=== PATIENT | female | born 1940 | race Two or more races ===

== ENCOUNTER 2017-08-06 08:58 | Inpatient (IN) | payer OTHER, MEDICARE ==
[~2017-08-06] VITALS: Ht 147.3 cm; Wt 55.3 kg
[~2017-08-06 08:58] MED LIST: AMLODIPINE BES2.5 M1 PO; ASPIR 8181 MG PO; AZU500 PO; BG MC; FOL1 PO; LEVOTHYROXINE0.05 M2 PO; LIPITOR40 MG PO; LOPRESSOR50 MG PO; METFORMIN HCL500 MG PO; NITROSTAT0.4 MG SL; PLA75 PO; RANITIDINE150 M1 PO; ZOCOR10 MG PO
[2017-08-06 10:30] LABS: BASOPHIL % 0.5 % (0-2); PLATELET COUNT 271 x10^3mcL (130-400)
[2017-08-06 10:57] LABS: ALBUMIN 3.6 g/dL (3.4-5.0); ALKALINE PHOSPHATASE 96 U/L (46-116); ALT/SGPT 29 U/L (14-59); AST/SGOT 37 U/L (15-37); BILIRUBIN TOTAL 0.3 mg/dL (0.20-1.00); CALCIUM 9.1 mg/dL (8.5-10.1); CARBON DIOXIDE 25.3 mmol/L (21-32); CHLORIDE SERUM 104 mmol/L (98-107); CREATININE SERUM 0.8 mg/dL (0.6-1.0); GLUCOSE SERUM 117 mg/dL (74-106); POTASSIUM SERUM 4.3 mmol/L (3.5-5.1); SODIUM SERUM 140 mmol/L (136-145); TOTAL PROTEIN, SERUM 7.9 g/dL (6.4-8.2)
[2017-08-06 11:06] LABS: AMYLASE 122 U/L (25-115); LIPASE 429 IU/L (73-393)
[2017-08-06 12:21] LABS: UA SPECIFIC GRAVITY <=1.005 (1.005-1.035); microscopic required? YES; urine erythrocyte 1+ (NEGATIVE)
[2017-08-06 12:58] VITALS: BP 116/62
[2017-08-06 13:00] LABS: MAGNESIUM 2.1 mg/dL (1.8-2.4); PHOSPHOROUS 3.6 mg/dL (2.5-4.9)
[2017-08-06 13:01] LABS: CHOLESTEROL/HDL RATIO 2.7
[2017-08-06 13:07] LABS: T3 TOTAL 1.24 ng/mL
[2017-08-06 13:11] LABS: FREE T4 1.21 ng/dL (0.76-1.46); FREE THYROXINE INDEX 3.8 ug/dL (1.4-4.5)
[2017-08-06 13:37] VITALS: BP 127/92
[2017-08-06] MEDS ORDERED: AMLODIPINE BES2.5 M1 PO (18:05)
[2017-08-06] MEDS ORDERED: SULFASALAZINE500 M1 PO (18:06)
[2017-08-06] MEDS ORDERED: ASPIR 8181 MG PO (18:08)
[2017-08-06 18:35] VITALS: BP 131/80
[2017-08-06 21:26] VITALS: BP 130/76
[2017-08-07 05:27] VITALS: BP 116/64
[2017-08-07 05:56] LABS: BASOPHIL % 0.4 % (0-2); PLATELET COUNT 238 x10^3mcL (130-400)
[2017-08-07 06:18] LABS: RED CELL DISTRIBUTION WIDTH 15.8 % (11.5-14.5)
[2017-08-07 06:29] LABS: CALCIUM 8.3 mg/dL (8.5-10.1); CARBON DIOXIDE 24.9 mmol/L (21-32); CHLORIDE SERUM 106 mmol/L (98-107); CREATININE SERUM 0.7 mg/dL (0.6-1.0); GLUCOSE SERUM 72 mg/dL (74-106); MAGNESIUM 1.6 mg/dL (1.8-2.4); PHOSPHOROUS 3.5 mg/dL (2.5-4.9); POTASSIUM SERUM 3.4 mmol/L (3.5-5.1); SODIUM SERUM 141 mmol/L (136-145)
[2017-08-07 09:38] VITALS: BP 124/67
[2017-08-07 13:04] VITALS: BP 115/67
[2017-08-07 18:30] VITALS: BP 117/71
[2017-08-07 21:58] VITALS: BP 144/111
[2017-08-07 22:15] VITALS: BP 94/52
[2017-08-08 06:20] VITALS: BP 110/76
[2017-08-08 07:02] LABS: CALCIUM 8.7 mg/dL (8.5-10.1); CARBON DIOXIDE 24.7 mmol/L (21-32); CHLORIDE SERUM 106 mmol/L (98-107); CREATININE SERUM 0.8 mg/dL (0.6-1.0); GLUCOSE SERUM 102 mg/dL (74-106); MAGNESIUM 2.3 mg/dL (1.8-2.4); PHOSPHOROUS 4.1 mg/dL (2.5-4.9); POTASSIUM SERUM 3.9 mmol/L (3.5-5.1); SODIUM SERUM 140 mmol/L (136-145)
[2017-08-08 07:23] LABS: BASOPHIL % 0.6 % (0-2); PLATELET COUNT 246 x10^3mcL (130-400)
[2017-08-08 07:27] LABS: RED CELL DISTRIBUTION WIDTH 16.2 % (11.5-14.5)
[2017-08-08 09:44] VITALS: BP 116/65
[2017-08-08] MEDS ORDERED: LEVOTHYROXINE0.05 M2 PO (14:31)
[2017-08-08] MEDS ORDERED: LOP50 PO (14:32)
[2017-08-08] MEDS ORDERED: MEDDP PO (14:35)
[2017-08-08 14:54] VITALS: BP 116/65
[2017-08-08] MEDS ORDERED: PLA75 PO (15:07)
[2017-08-08] MEDS ORDERED: AMLODIPINE BES2.5 M1 PO (15:08)
[2017-08-08] MEDS ORDERED: LIPITOR40 MG PO (15:09)
== END 2017-08-08 16:20 | disposition home or self-care (01) | DRG 245 ==
LOC: ED 08:58 → MU 11:46 → DU 11:46 → MU 08-07 11:29
PROVIDERS: Emergency Medicine; ADMIT Family Medicine Sports Medicine
DX: K51.90 Ulcerative colitis, unspecified, without complications (principal); E11.51 Type 2 diabetes mellitus with diabetic peripheral angiopathy without gangrene; E11.65 Type 2 diabetes mellitus with hyperglycemia; K86.1 Other chronic pancreatitis; E83.42 Hypomagnesemia; N28.1 Cyst of kidney, acquired; K57.32 Diverticulitis of large intestine without perforation or abscess without bleeding; I25.10 Atherosclerotic heart disease of native coronary artery without angina pectoris; E78.5 Hyperlipidemia, unspecified; E03.9 Hypothyroidism, unspecified; I10 Essential (primary) hypertension; E83.51 Hypocalcemia; E87.6 Hypokalemia; D64.9 Anemia, unspecified; I25.2 Old myocardial infarction; Z95.5 Presence of coronary angioplasty implant and graft; Z79.02 Long term (current) use of antithrombotics/antiplatelets; Z79.82 Long term (current) use of aspirin; Z68.25 Body mass index [BMI] 25.0-25.9, adult
CPT/HCPCS: 82962; 83880; 84439; 87046; 87046-59; 90658; J2270; J2543; J3475; J7030; Q0092; Q9966; Q9967

== ENCOUNTER 2018-05-24 07:22 | Inpatient (IN) | payer OTHER, MEDICARE ==
[~2018-05-24] VITALS: Ht 149.9 cm; Wt 54.9 kg
[~2018-05-24 07:22] MED LIST changes: +LOP50 PO; +MEDDP PO; +SULFASALAZINE500 M1 PO
[2018-05-24 08:43] LABS: PLATELET COUNT 184 x10^3mcL (130-400)
[2018-05-24 08:46] LABS: RED CELL DISTRIBUTION WIDTH 15.4 % (11.5-14.5)
[2018-05-24 09:47] LABS: CALCIUM 9.2 mg/dL (8.5-10.1); CARBON DIOXIDE 27.4 mmol/L (21-32); CHLORIDE SERUM 105 mmol/L (98-107); CREATININE SERUM 0.9 mg/dL (0.6-1.0); GLUCOSE SERUM 104 mg/dL (74-106); POTASSIUM SERUM 3.8 mmol/L (3.5-5.1); SODIUM SERUM 141 mmol/L (136-145)
[2018-05-24 10:07] LABS: ALBUMIN 3.4 g/dL (3.4-5.0); ALKALINE PHOSPHATASE 70 U/L (46-116); ALT/SGPT 40 U/L (14-59); AST/SGOT 26 U/L (15-37); BILIRUBIN TOTAL 0.89 mg/dL (0.20-1.00); TOTAL PROTEIN, SERUM 6.6 g/dL (6.4-8.2)
[2018-05-24 10:16] LABS: AMYLASE 713 U/L (25-115)
[2018-05-24 10:22] LABS: BAND NEUTROPHIL 10 % (0-10); BASOPHIL 0 % (0-2); MONOCYTE 5 % (0-7); PLATELET MORPHOLOGY PLATELETS NORMAL; SEGMENTED NEUTROPHILS 78 % (37-75)
[2018-05-24 10:33] LABS: LIPASE 2592 IU/L (73-393)
[2018-05-24 10:40] LABS: UA SPECIFIC GRAVITY >=1.030 (1.005-1.035); microscopic required? YES; urine erythrocyte TRACE (NEGATIVE)
[2018-05-24 12:35] LABS: AMPHETAMINE QUAL UR NONE DETECTED (See below)
[2018-05-24 12:36] LABS: MAGNESIUM 1.8 mg/dL (1.8-2.4); PHOSPHOROUS 5.1 mg/dL (2.5-4.9)
[2018-05-24 13:18] VITALS: BP 124/77
[2018-05-24 17:30] VITALS: BP 114/68
[2018-05-24 20:41] VITALS: BP 116/67
[2018-05-25] VITALS (7 sets, daily range): BP systolic 109–132; BP diastolic 62–72; Ht 149.9 cm; Wt 54.9 kg
[2018-05-25 06:29] LABS: BASOPHIL % 0.1 % (0-2); PLATELET COUNT 145 x10^3mcL (130-400)
[2018-05-25 06:47] LABS: RED CELL DISTRIBUTION WIDTH 14.9 % (11.5-14.5)
[2018-05-25 07:06] LABS: CALCIUM 7.5 mg/dL (8.5-10.1); CARBON DIOXIDE 26.6 mmol/L (21-32); CHLORIDE SERUM 107 mmol/L (98-107); CREATININE SERUM 0.9 mg/dL (0.6-1.0); LIPASE 442 IU/L (73-393); POTASSIUM SERUM 3.4 mmol/L (3.5-5.1); SODIUM SERUM 142 mmol/L (136-145)
[2018-05-25 07:25] LABS: GLUCOSE SERUM 56 mg/dL (74-106)
[2018-05-26 06:09] VITALS: BP 145/81
[2018-05-26 07:44] LABS: CALCIUM 7.1 mg/dL (8.5-10.1); CARBON DIOXIDE 25.3 mmol/L (21-32); CHLORIDE SERUM 105 mmol/L (98-107); CREATININE SERUM 0.8 mg/dL (0.6-1.0); GLUCOSE SERUM 75 mg/dL (74-106); MAGNESIUM 1.7 mg/dL (1.8-2.4); PHOSPHOROUS 2.3 mg/dL (2.5-4.9); POTASSIUM SERUM 3.8 mmol/L (3.5-5.1); SODIUM SERUM 137 mmol/L (136-145)
[2018-05-26 08:15] LABS: BASOPHIL % 0.3 % (0-2)
[2018-05-26 08:18] LABS: PLATELET COUNT 126 x10^3mcL (130-400); RED CELL DISTRIBUTION WIDTH 14.9 % (11.5-14.5)
[2018-05-26 09:06] VITALS: BP 114/75
[2018-05-26 13:26] VITALS: BP 146/82
[2018-05-26 16:46] VITALS: BP 146/82
[2018-05-26 17:33] VITALS: BP 142/79
== END 2018-05-26 19:00 | disposition home or self-care (01) | DRG 720 ==
LOC: ED 07:22 → DU 11:24 → MU 11:24 → DU 12:10 → MU 12:20 → DU 17:21
PROVIDERS: Emergency Medicine; Internal Medicine
DX: A41.9 Sepsis, unspecified organism (principal); N17.0 Acute kidney failure with tubular necrosis; E87.2 Acidosis; K85.90 Acute pancreatitis without necrosis or infection, unspecified; E83.42 Hypomagnesemia; E83.39 Other disorders of phosphorus metabolism; E86.0 Dehydration; I10 Essential (primary) hypertension; I25.10 Atherosclerotic heart disease of native coronary artery without angina pectoris; E83.51 Hypocalcemia; I25.2 Old myocardial infarction; Z68.26 Body mass index [BMI] 26.0-26.9, adult; Z95.5 Presence of coronary angioplasty implant and graft; N39.0 Urinary tract infection, site not specified; R73.03 Prediabetes
CPT/HCPCS: 82962; 83880; C9113; J1650; J1885; J2405; J2543; J3490; J7030; Q0092

== ENCOUNTER 2018-11-16 21:08 | Inpatient (IN) | payer OTHER, MEDICARE ==
[~2018-11-16] VITALS: Ht 149.9 cm; Wt 57.6 kg
[2018-11-16 21:15] VITALS: Ht 149.9 cm; Wt 57.6 kg
[2018-11-16 22:16] LABS: BASOPHIL % 0.4 % (0-2); PLATELET COUNT 166 x10^3mcL (130-400); RED CELL DISTRIBUTION WIDTH 13.9 % (11.5-14.5)
[2018-11-16 22:28] LABS: CALCIUM 8.6 mg/dL (8.5-10.1); CARBON DIOXIDE 25.2 mmol/L (21-32); CHLORIDE SERUM 101 mmol/L (98-107); CREATININE SERUM 0.9 mg/dL (0.6-1.0); GLUCOSE SERUM 131 mg/dL (74-106); POTASSIUM SERUM 3.2 mmol/L (3.5-5.1); SODIUM SERUM 134 mmol/L (136-145)
[2018-11-16 22:33] LABS: ALBUMIN 3.4 g/dL (3.4-5.0); ALKALINE PHOSPHATASE 93 U/L (46-116); ALT/SGPT 18 U/L (14-59); AST/SGOT 55 U/L (15-37); BILIRUBIN TOTAL 0.4 mg/dL (0.20-1.00); LIPASE 156 IU/L (73-393); TOTAL PROTEIN, SERUM 7.3 g/dL (6.4-8.2)
--- NOTE | 2018-11-16 23:21 | NUR ---
PT MEDICATED WITH 650MG OF TYLENOL FOR COMPLAINT OF HEADACHE VO/RBO DR. RAINES.
--- NOTE | 2018-11-17 00:55 | NUR ---
PT RESTING AT BEDSIDE IN NAD. BREATHING E/U, BILATERAL CHEST RISE. BED AT LOWEST LEVEL. LIGHTS DIMMED TO PROMOTE PATIENT COMFORT.
--- NOTE | 2018-11-17 01:05 | NUR ---
NORA RAINES FOR RECTAL EXAM.
[2018-11-17] MEDS ORDERED: COLAZAL750 MG PO (01:50)
[2018-11-17] MEDS ORDERED: NATURAL IRON65 MG PO (01:51)
[2018-11-17] MEDS ORDERED: FLUOCINOLON118.28 M1 (01:51)
[2018-11-17 02:07] LABS: MAGNESIUM 1.9 mg/dL (1.8-2.4); PHOSPHOROUS 2.9 mg/dL (2.5-4.9)
[2018-11-17 02:08] LABS: CHOLESTEROL/HDL RATIO 3.1
[2018-11-17 02:15] VITALS: BP 114/71
--- NOTE | 2018-11-17 02:37 | NUR ---
RECIEVED [facility] ER DEPT VIA WHEELCHAIR ACCOMPANIED BY ER STAFFS WITH CHIEF COMPLAINTS OF ABDOMINAL PAIN DUE TO ULCERATIVE COLITIS/LOWER GI BLEED PER DX. PLACED COMFORTABLY IN BED. PT ALERT AND ORIENTED. ABLE TO MAKE NEEDS KNOWN,VITAL SIGNS TAKEN AND RECORDED. ON ROOM AIR SATURATING AT 84%. NO SOB NOTED. DENIES ANY PAIN/DISCOMFORT AT THIS TIME, PT WAS GIVEN MORPHINE IV AT ER. DR CAUSEY EXAMINED PT, STARTED ON IVF NS AT 70CC/HR ORDERED VIA PERIPHERAL LINE AT THE [facility] . PLACED CALL LIGHT WITHIN REACH, INSTRUCTED TO CALL FOR ANY ASSISTANCE NEEDED AND VERBALIZED UNDERSTANDING.
[2018-11-17] MEDS ORDERED: GOOD NEIGHBOR P20 M2 PO (03:22)
--- NOTE | 2018-11-17 03:32 | NUR ---
POTASSIUM LEVEL =3.2, K-DUR 40MEQ PO GIVEN ORDERED, TOLERATED WELL. NO NAUSEA/VOMTING NOTED.
[2018-11-17 04:01] LABS: UA SPECIFIC GRAVITY <=1.005 (1.005-1.035); microscopic required? YES; urine erythrocyte TRACE (NEGATIVE)
[2018-11-17 04:10] LABS: AMPHETAMINE QUAL UR NONE DETECTED (See below)
[2018-11-17 05:26] VITALS: BP 107/56
--- NOTE | 2018-11-17 06:26 | NUR ---
DENIES ANY PAIN/DISCOMFORT AT THIS TIME. ALL NEEDS ATTENDED.
[2018-11-17 06:35] LABS: BASOPHIL % 0.5 % (0-2); RED CELL DISTRIBUTION WIDTH 13.7 % (11.5-14.5)
[2018-11-17 06:42] LABS: PLATELET COUNT 128 x10^3mcL (130-400)
--- NOTE | 2018-11-17 07:10 | NUR ---
PT AWAKE, ALERT, COOPERATIVE OF CARE. DENIES PAIN AT MOMENT. ABLE TO VERBALIZE NEEDS. EFFORTLESS BREATHING ON ROOM AIR. IV PATENT TO LAC#22. BED IN LOWEST POSITION, CALL LIGHT WITHIN REACH. WILL CONTINUE TO MONITOR.
[2018-11-17 07:34] LABS: CHLORIDE SERUM 107 mmol/L (98-107); CREATININE SERUM 0.7 mg/dL (0.6-1.0); GLUCOSE SERUM 92 mg/dL (74-106); MAGNESIUM 1.7 mg/dL (1.8-2.4); PHOSPHOROUS 3.6 mg/dL (2.5-4.9); POTASSIUM SERUM 3.3 mmol/L (3.5-5.1); SODIUM SERUM 138 mmol/L (136-145)
[2018-11-17 09:28] VITALS: BP 128/66
--- NOTE | 2018-11-17 12:10 | NUR ---
PT IN LOW FOWLERS, DENIES ANY ABDOMINAL PAIN AT MOMENT. EFFORTLESS BREATHING ON ROOM AIR. IV PATENT AND INFUSING WELL TO LAC#22. BED IN LOWEST POSITION, CALL LIGHT WITHIN REACH.
[2018-11-17 12:11] VITALS: BP 111/60
[2018-11-17 17:00] LABS: BASOPHIL % 0.4 % (0-2); RED CELL DISTRIBUTION WIDTH 13.9 % (11.5-14.5)
[2018-11-17 17:01] LABS: PLATELET COUNT 123 x10^3mcL (130-400)
--- NOTE | 2018-11-17 18:11 | NUR ---
PT SLEEPING AT MOMENT. EFFORTLESS BREATHING ON ROOM AIR. NO S/S OF PAIN. IV PATENT AND INFUSING WELL TO LAC#22 BED IN LOWEST POSITION, CALL LIGHT WITHIN REACH.
--- NOTE | 2018-11-17 19:31 | NUR ---
RECEIVED AWAKE IN BED WATCHING TV , APPARENTLY COMFORTABLE. DENIES ANY PAIN/DISCOMFORT. RESPIRATIONE FER AND UNLABORED. ON TELE #32 WITH SR AT 78-86 IV SITE AT THE RAC INTACT AND PATENT WITH IVF NA ST 70ML/HR TOLERATING WELL. NO REDNESS/SWELLING NOTED AT THE IV SITE. WILL CONTINUE TO MONITOR.
--- NOTE | 2018-11-17 21:00 | NUR ---
DUE MEDICATIONS GIVEN AND WELL TOLERATED. NO S/S OF ASPIRATION NOTED.
[2018-11-17 21:12] VITALS: BP 113/71
--- NOTE | 2018-11-18 00:01 | NUR ---
EYES CLSOED, NO FACIAL GRIAMCING NOTED. NO S/S OF PAIN/DISCOMFORT. CALL LIGHT WITHIN REACH. BED IN LOWEST POSITION FOR SAFETY.
[2018-11-18 05:20] VITALS: BP 110/65
--- NOTE | 2018-11-18 05:31 | NUR ---
STOOL SPECIMEN COLLECTED FOR STOOL C-DIFF/STOOL ON AND SENT TO LAB. GOOD PERICARE RENDERED. KEPT CLEAN AND DRY. BLOOD SUGAR CHECK 86,G/DL. NIO INSULIN COVERAGE PER SLIDING SCALE. ALL NEEDS ATTENDED.
[2018-11-18 05:41] LABS: CARBON DIOXIDE 23.7 mmol/L (21-32); CHLORIDE SERUM 104 mmol/L (98-107); CREATININE SERUM 0.8 mg/dL (0.6-1.0); GLUCOSE SERUM 80 mg/dL (74-106); MAGNESIUM 1.8 mg/dL (1.8-2.4); PHOSPHOROUS 2.4 mg/dL (2.5-4.9); POTASSIUM SERUM 4.2 mmol/L (3.5-5.1); SODIUM SERUM 137 mmol/L (136-145)
[2018-11-18 05:47] LABS: BASOPHIL % 0.4 % (0-2); RED CELL DISTRIBUTION WIDTH 13.7 % (11.5-14.5)
[2018-11-18 07:09] LABS: PLATELET COUNT 118 x10^3mcL (130-400)
--- NOTE | 2018-11-18 07:40 | NUR ---
RECEIVED PT RESTING IN BED. NO ACUTE DISTRESS. AAOX4. RESP EVEN AND UNLABORED ON RA. ABD SOFT, ROUND, BOWEL SOUNDS ACTIVE. C/O NAUSEA, DOES NOT WANT MEDICATION. C/O LOWER ABD PAIN BUT TOLERABLE. PT REPORTS PASSING A LOT OF GAS. VOIDING FREELY. IV TO LAC, NO REDNESS OR SWELLING. BED IN LOW POSITION, CALL LIGHT WITHIN REACH. WILL CONTINUE TO MONITOR.
[2018-11-18 07:52] VITALS: BP 128/64
--- NOTE | 2018-11-18 10:30 | NUR ---
[employer] SAF[employer] EQUIPMENT TECHNICIAN AWARE OF STOOL OB RESULTS AND PHOS 2.4. NO NEW ORDERS AT THIS TIME. WILL CONTINUE TO MONITOR.
[2018-11-18 11:53] VITALS: BP 110/57
--- NOTE | 2018-11-18 13:55 | NUR ---
PT RESTING IN BED. NO ACUTE DISTRESS. C/O INTERMITTENT LOWER ABD PAIN AND NAUSEA, DOES NOT WANT MEDICATION AT THIS TIME. IVF INFUSING, NO REDNESS OR SWELLING NOTED. BED IN LOW POSITION, CALL LIGHT WITHIN REACH. WILL CONTINUE TO MONITOR.
[2018-11-18 16:18] VITALS: BP 113/56
--- NOTE | 2018-11-18 16:49 | NUR ---
PT RESTING IN BED. NO ACUTE DISTRESS. REPORTS HAVING SMALL DARK BLOODY BM. C/O MILD NAUSEA AND LOWER ABD PAIN BUT TOLERABLE. IVF INFUSING, NO REDNESS OR SWELLING. CALL LIGHT WITHIN REACH. WILL CONTINUE TO MONITOR.
--- NOTE | 2018-11-18 18:09 | NUR ---
PT SITTING UP IN BED EATING DINNER. NO ACUTE DISTRESS. RESP EVEN AND UNLABORED ON RA. IVF INFUSING, NO REDNESS OR SWELLING TO IV SITE. C/O MILD NAUSEA AND ABD PAIN, NO REDNESS OR SWELLING. BED IN LOW PSOITION, CALL LIGHT WITHIN REACH. WILL ENDORSE TO ONCOMING SHIFT.
--- NOTE | 2018-11-18 19:34 | NUR ---
RECEIVED PT FROM PREVIOUS SHIFT. PT A/OX4. DENIES PAIN. DENIES SOB ON RA. IV PATENT AND INFUSING NS AT 70ML/HR WITH NO S/S OF INFILTRATION. CALL LIGHT WITHIN REACH, BED IN LOW POSITION. WILL CONTINUE TO MONITOR.
[2018-11-18 20:52] VITALS: BP 124/714
--- NOTE | 2018-11-19 01:31 | NUR ---
PT RESTING IN NO ACUTE DISTRESS. RR EVEN AND UNLABORED. CALL LIGHT WITHIN REACH, BED IN LOW POSITION. WILL CONTINUE TO MONITOR.
[2018-11-19 05:32] VITALS: BP 106/66
--- NOTE | 2018-11-19 07:20 | NUR ---
RECEIVED PT IN NO ACUTE DISTRESS. AAOX4. RESP EVEN AND UNLABORED ON RA. DENIES NAUSEA OR ABD PAIN. IVF INFUSING AT 70 ML/HR, NO REDNESS OR SWELLING TO IV SITE. AMBULATORY. BED IN LOW POSITION, CALL LIGHT WITHIN REACH. WILL CONTINUE TO MONITOR.
[2018-11-19 07:48] VITALS: BP 102/60
[2018-11-19 12:25] VITALS: BP 101/59
--- NOTE | 2018-11-19 13:07 | NUR ---
11/19/18 AT 1220 BLOOD GLUCOSE CHECKED 53. REPEATED 60. PT AWAKE, ALERT AND ORIENTED. 2 APPLEJUICE GIVEN PER PT REQUEST. REPEATED BLOOD SUGAR AT 1243 WAS 104. PT EATING LUNCH. CALL LIGHT WITHIN REACH. WILL CONTINUE TO MONITOR.
[2018-11-19 16:50] VITALS: BP 112/63
--- NOTE | 2018-11-19 18:32 | NUR ---
PT SITTING UP IN BED TALKING ON THE PHONE. NO ACUTE DISTRESS NOTED. NO COMPLAINTS OF N, V OR ABD PAIN. IV SITE PATENT WITH NO SIGNS OF REDNESS OR SWELLING. BED IN LOW POSITION. WILL ENDORSE TO ONCOMING SHIFT. CALL LIGHT WITHIN REACH.
--- NOTE | 2018-11-19 19:55 | NUR ---
PATIENT'S PLAN OF CARE WAS DISCUSSED AND REVIEWED WITH RADIO ENGINEERING TEACHER: ELLEN MICHELLE
--- NOTE | 2018-11-19 20:07 | NUR ---
RECEIVED PT IN BED AAOX4 , PT DENY ABD PAIN AT THE MOMENT , LUNG SOUNDS CTA , ABD SOFT BS ACTIVE X4, ON TELE NUMBER 31 THAT SHOWS NSR HR 77, PIV TO LAC INTACT INFUSING NS AT 70ML/HR , CALL LIGHT WITHIN PT'S REACH , WILL CON;T TO MONITOR AND ASSIST PT WITH CARE .
[2018-11-19 20:15] VITALS: BP 115/69
--- NOTE | 2018-11-20 04:45 | NUR ---
PT'S IN BED AWAKE C/O RECTAL PAIN AFTER BM , DR CAUSEY AWARE. PIV INTACT INFUSING WELL, TLE NSR .
[2018-11-20 06:00] VITALS: BP 120/71
--- NOTE | 2018-11-20 06:15 | NUR ---
PT'S IN BED AWAKE NO ACUTE DISTRESS NOTED, PIV INTACT INFUSING WELL , TELE NSR.
--- NOTE | 2018-11-20 06:23 | NUR ---
I HAVE REVIEWED THE DATA COLLECTION BY LAINE (NAME): ELLEN MICHELLE ENTERED ON (DATE/TIME): 11/20/18 4029 I CONCUR WITH THE DATA AND ANY EXCEPTIONS OR COMMENTS ARE LISTED BELOW:
--- NOTE | 2018-11-20 06:44 | NUR ---
PT WANT IV HL'D ,PIV IS ON LAC PT WON'T KEEP LEFT ARM STRAIGHT, REFUSED TO HAVE NEW IV SITE , PAGED DR CAUSEY , AT THE MOMENT IV IS HL'D . WILL ENDORSE TO AM NURSE TO F/U WITH .
--- NOTE | 2018-11-20 07:08 | NUR ---
RECEIVED REPORT FROM ELLEN JANG. PATIENT RESTING IN BED. IV TO LAC IS PATENT AND INTACT. NO REDNESS OR PAIN. TELE #[address] PT DENIES CHEST PAIN. PT ON ROOOM AIR. NO C/O SOB AND NO DISTRESS NOTED. PT C/O HEADACHE AND RECTAL PAIN SHE BELIEVES IS FROM WIPING. WILL MONITOR AND MEDICATE. ALL QUESTIONS AND CONCERNS ADDRESSED.
[2018-11-20 08:23] VITALS: BP 120/68
--- NOTE | 2018-11-20 09:29 | NUR ---
IN TO ADMINISTER MEDICATION (SEE EMAR). PT RESTING COMFORTABLY IN BED. ALL NEEDS MET.
[2018-11-20 09:33] LABS: BASOPHIL % 0.2 % (0-2); RED CELL DISTRIBUTION WIDTH 13.6 % (11.5-14.5)
[2018-11-20 09:55] LABS: PLATELET COUNT 98 x10^3mcL (130-400)
[2018-11-20 11:43] VITALS: BP 102/60
--- NOTE | 2018-11-20 11:56 | NUR ---
IN TO CHECK BLOOD GLUCOSE. GLUCOSE IS 148 NO ACTION REQUIRED.
[2018-11-20] MEDS ORDERED: ROBDML (12:35)
--- NOTE | 2018-11-20 13:05 | NUR ---
PT NAUSEATED AND VOMITING. IN TO ADMINISTER ZOFRAN (SEE EMAR). PT RESTING IN BED. ALL NEEDS MET.
--- NOTE | 2018-11-20 13:47 | NUR ---
SPOKE WITH SONALI TO NOTIFY THAT AFTER RECEIVING DISCHARGE ORDERS PT BECAME NAUSEATED AND VOMITTED. SONALI ORDERED TO HOLD DISCHARGE AND HAVE GI CONSULT WITH PATIENT AGAIN.
--- NOTE | 2018-11-20 14:40 | NUR ---
*Recommend CCHO 2gm Na diet. Please see Nutritional Assessment for details.
--- NOTE | 2018-11-20 14:40 | NUR ---
Initial Nutrition Assessment- Dx: UC, Lower GI bleed PMHx: Ulcerative colitis (2014), HTN, [place] s/p PCI, hypercholesterolemia PSHx: hysterectomy Labs: (11/18) BG 80 WNL, Ca 8 L, P 2.4 L, AST 55 H, HgA1c 6.7 H, Meds: colace, D50%W, humulin, protonix IV, synthroid, zofran Diet: Cardiac low CHOL, Low fat 2gm Na diet PO Intake: 100% of breakfast (11/20), previously on clear liquid diet Ht: 4' Wt: 127 lb, 58 kg BMI: 25.7 kg/m2 IBW: 95 lb, 43 kg %IBW: 134 UBW: unknown Age: 78 yrs old Food Allergies: unknown Skin: is intact. Chente: 22 Edema: no edema noted. GI: abd is soft w/ active bowel sounds. Last BM 11/19/18 Per H&P, pt presents to the ED w/ worsening abd pain for 10 days associated w/ dark bloody stool. Pt seen having emesis at time of RD visit. RD interview was not conducted d/t pt's condition. Problem with: N/V: yes D/C: no Problems with: Chewing: none Swallowing: none Current appetite: Good Recent wt change: none %wt change: n/a Vitamin/Supplement use: none Special diet at home: unknown Physical activity: unknown Education: not appropriate at this time. Estimated Nutritional Needs Based on actual body weight 58 kg Energy: 0660-2376 kcal/d (25-30 kcal/kg-maintenance) Protein: 58-70 g/d (1-1.2 g/kg- Geriatric maintenance and preservation of lean body mass) Fluid: 2124-3016 ml/d (1 ml/kcal-fluid balance) or per doctor Nutrition Diagnosis Complicated GI function related to UC as evidenced by abd pain, GI bleed and dark stools. Intervention *Recommend CCHO 2gm Na diet. Monitor/Evaluate Goal: PO intake at least 75% of estimated needs Monitor: PO intake, Labs, GI function F/U in 7 days as low risk 11/27
[2018-11-20 16:19] VITALS: BP 99/59
--- NOTE | 2018-11-20 16:59 | NUR ---
IN TO CHECK BLOOD GLUCOSE. GLUCOSE IS 143 NO ACTION REQUIRED.
--- NOTE | 2018-11-20 18:59 | NUR ---
PT RESTING COMFORTABLY IN BED. IV TO LAC IS PATENT AND INFUSING NS @ 70 ML/HR. NO REDNESS OR APIN. TELE # [address] PT DENIES CHEST PAIN. PT ON ROOM AIR. NO C/O SOB AND NO DISTRESS NOTED. WILL ENDORSE ALL CARE TO ONCOMING NURSE.
--- NOTE | 2018-11-20 19:30 | NUR ---
RECIEVED PATIENT AT START OF SHIFT ALERT, VICENTA SPEAKING ONLY, FOLLOWS COMMANDS. DENIES PAIN AT THIS TIME, NO SOB NOTED ON RA. ABDOMEN SOFT AND ROUND, TENDER TO PALPATION IN LLQ. BOWEL SOUNDS ACTIVE. IV INTACT INFUSING FLUIDS WITHOUT REDNESS OR EDEMA. PATIENT AMBULATORY, WALKER AT BEDSIDE. BED LOCKED AND IN LOWEST POSIIOTN. CALL LIGHT AND BEDSIDE TABLE WITHIN REACH. WILL CONTINUE TO MONITOR.
[2018-11-20 21:19] VITALS: BP 121/72
--- NOTE | 2018-11-21 00:56 | NUR ---
PATIENT'S EYES ARE CLOSED, NO APPARENT DISTRESS, BREATHS REGULAR AND EVEN. WILL CONTINUE TO MONITOR.
[2018-11-21 05:27] VITALS: BP 118/60
[2018-11-21 06:20] LABS: CARBON DIOXIDE 26.1 mmol/L (21-32); CHLORIDE SERUM 102 mmol/L (98-107); CREATININE SERUM 0.7 mg/dL (0.6-1.0); GLUCOSE SERUM 109 mg/dL (74-106); POTASSIUM SERUM 3.3 mmol/L (3.5-5.1); SODIUM SERUM 137 mmol/L (136-145)
--- NOTE | 2018-11-21 06:34 | NUR ---
NO SIGNIFICANT EVENTS THIS SHIFT. WILL ENDORSE CARE TO MORNING NURSE.
--- NOTE | 2018-11-21 08:04 | NUR ---
AAO TIMES 4. TELE # 31 SR. LUNGS CTA. NO SOB. O2 SAT ON RA 95%. BS'S ACTIVE TIMES 4. PATIENT DENIES EXCESSIVE DIARRHEA. MEDLEY, AMBULATES BRP USING IV POLE FOR STABILITY. IV SITE LAC PATENT, CDI. COOPERATIVE. SCD BLE. PERIPHERAL PULSES PALPABLE. NO EDEMA. NO C/O PAIN. NO SOB.
[2018-11-21 08:13] LABS: BASOPHIL % 0.3 % (0-2); RED CELL DISTRIBUTION WIDTH 13.8 % (11.5-14.5)
[2018-11-21 08:14] LABS: PLATELET COUNT 79 x10^3mcL (130-400)
[2018-11-21 08:30] VITALS: BP 103/59
[2018-11-21] MEDS ORDERED: IMODIUM A-D2 M3 PO (09:54)
[2018-11-21] MEDS ORDERED: FLA500 PO (09:54)
[2018-11-21 12:30] VITALS: BP 112/67
[2018-11-21 14:14] VITALS: BP 112/67
--- NOTE | 2018-11-21 15:21 | NUR ---
DC'D SL ANGIO INTACT. GAVE HER DISCHARGE INSTRUCTIONS AND PRESCRIPTION WITH GRANDSON PRESENT. THEY VERBALIZED "I UNDERSTAND" TO ALL INSTRUCTIONS. DC'D TO HOME VIA W/C TO CAR WITH GRANDSON AND NURSES AID PRESENT.
== END 2018-11-21 15:20 | disposition home or self-care (01) | DRG 245 ==
LOC: ED 21:08 → MU 11-17 01:19 → DU 11-17 01:19 → MU 11-17 03:04 → DU 11-17 04:16
PROVIDERS: Emergency Medicine; Family Medicine; ADMIT Internal Medicine
DX: K51.311 Ulcerative (chronic) rectosigmoiditis with rectal bleeding (principal); K65.0 Generalized (acute) peritonitis; D68.69 Other thrombophilia; E11.65 Type 2 diabetes mellitus with hyperglycemia; E87.1 Hypo-osmolality and hyponatremia; E87.6 Hypokalemia; I10 Essential (primary) hypertension; I25.2 Old myocardial infarction; Z68.25 Body mass index [BMI] 25.0-25.9, adult; Z95.5 Presence of coronary angioplasty implant and graft; Z79.82 Long term (current) use of aspirin
CPT/HCPCS: 82962; 97116-GP; 97530-GP; C9113; J2270; J2405; J7030; Q0092

== ENCOUNTER 2018-11-25 11:07 | Inpatient (IN) | payer OTHER, MEDICARE ==
[~2018-11-25] VITALS: Ht 149.9 cm; Wt 57.2 kg
[~2018-11-25 11:07] MED LIST changes: +COLAZAL750 MG PO; +FLA500 PO; +FLUOCINOLON118.28 M1; +GOOD NEIGHBOR P20 M2 PO; +IMODIUM A-D2 M3 PO; +NATURAL IRON65 MG PO; +ROBDML PO
[2018-11-25 11:12] VITALS: Ht 149.9 cm; Wt 57.2 kg
[2018-11-25 13:12] LABS: RED CELL DISTRIBUTION WIDTH 13.8 % (11.5-14.5)
[2018-11-25 13:26] LABS: PLATELET COUNT 63 x10^3mcL (130-400)
[2018-11-25 13:31] LABS: ALKALINE PHOSPHATASE 101 U/L (46-116); ALT/SGPT 38 U/L (14-59); AMYLASE 44 U/L (25-115); AST/SGOT 71 U/L (15-37); BILIRUBIN TOTAL 0.82 mg/dL (0.20-1.00); CARBON DIOXIDE 29.6 mmol/L (21-32); CHLORIDE SERUM 88 mmol/L (98-107); CREATININE SERUM 0.8 mg/dL (0.6-1.0); GLUCOSE SERUM 134 mg/dL (74-106); LIPASE 76 IU/L (73-393); POTASSIUM SERUM 3.3 mmol/L (3.5-5.1); SODIUM SERUM 125 mmol/L (136-145); TOTAL PROTEIN, SERUM 6.8 g/dL (6.4-8.2)
[2018-11-25 13:34] LABS: ALBUMIN 2.8 g/dL (3.4-5.0)
[2018-11-25 15:12] LABS: UA SPECIFIC GRAVITY 1.025 (1.005-1.035); microscopic required? YES; urine erythrocyte TRACE (NEGATIVE)
[2018-11-25 16:58] VITALS: BP 112/54
[2018-11-25 18:32] VITALS: BP 113/77
[2018-11-25 21:10] VITALS: BP 112/66
[2018-11-26 05:03] VITALS: BP 116/65
[2018-11-26 07:33] LABS: CALCIUM 7.7 mg/dL (8.5-10.1); CARBON DIOXIDE 28.1 mmol/L (21-32); CHLORIDE SERUM 96 mmol/L (98-107); CREATININE SERUM 0.7 mg/dL (0.6-1.0); GLUCOSE SERUM 98 mg/dL (74-106); POTASSIUM SERUM 3.8 mmol/L (3.5-5.1); SODIUM SERUM 131 mmol/L (136-145)
[2018-11-26 07:35] LABS: BASOPHIL % 0.3 % (0-2); RED CELL DISTRIBUTION WIDTH 13.7 % (11.5-14.5)
[2018-11-26 07:37] LABS: PLATELET COUNT 78 x10^3mcL (130-400)
[2018-11-26 08:00] VITALS: BP 107/64
[2018-11-26 12:30] VITALS: BP 105/69
[2018-11-26 17:00] VITALS: BP 100/57
[2018-11-26 20:33] VITALS: BP 105/65
[2018-11-27 05:05] VITALS: BP 113/70
[2018-11-27 06:29] LABS: CALCIUM 7.4 mg/dL (8.5-10.1); CARBON DIOXIDE 25.5 mmol/L (21-32); CHLORIDE SERUM 97 mmol/L (98-107); CREATININE SERUM 0.9 mg/dL (0.6-1.0); GLUCOSE SERUM 109 mg/dL (74-106); SODIUM SERUM 132 mmol/L (136-145)
[2018-11-27 06:56] LABS: BASOPHIL % 0.4 % (0-2); PLATELET COUNT 160 x10^3mcL (130-400); RED CELL DISTRIBUTION WIDTH 14.2 % (11.5-14.5)
[2018-11-27 07:09] LABS: POTASSIUM SERUM 2.7 mmol/L (3.5-5.1)
[2018-11-27 09:09] VITALS: BP 98/66
[2018-11-27 12:21] VITALS: BP 108/67
[2018-11-27 17:00] VITALS: BP 104/57
[2018-11-27 21:13] VITALS: BP 94/64
[2018-11-28] VITALS (7 sets, daily range): BP systolic 96–112; BP diastolic 58–74
[2018-11-28 06:28] LABS: CALCIUM 7.6 mg/dL (8.5-10.1); CARBON DIOXIDE 25.4 mmol/L (21-32); CHLORIDE SERUM 102 mmol/L (98-107); CREATININE SERUM 0.9 mg/dL (0.6-1.0); GLUCOSE SERUM 128 mg/dL (74-106); POTASSIUM SERUM 3.5 mmol/L (3.5-5.1); SODIUM SERUM 136 mmol/L (136-145)
[2018-11-28 06:47] LABS: BASOPHIL % 0.3 % (0-2); PLATELET COUNT 214 x10^3mcL (130-400); RED CELL DISTRIBUTION WIDTH 14.4 % (11.5-14.5)
[2018-11-28] MEDS ORDERED: ELIQUIS2.5 MG PO (13:48)
[2018-11-28] MEDS ORDERED: FLA500 PO (13:51)
[2018-11-28] MEDS ORDERED: LEVAQUIN500 M1 PO (14:00)
[2018-11-29 05:49] VITALS: BP 114/63
[2018-11-29 06:14] LABS: BASOPHIL % 0.5 % (0-2); PLATELET COUNT 282 x10^3mcL (130-400); RED CELL DISTRIBUTION WIDTH 13.6 % (11.5-14.5)
[2018-11-29 09:31] VITALS: BP 121/72
[2018-11-29 12:27] VITALS: BP 107/72
[2018-11-29 16:01] VITALS: BP 107/72
[2018-11-29 18:22] VITALS: BP 119/78
== END 2018-11-29 18:20 | disposition home or self-care (01) | DRG 720 ==
LOC: ED 11:07 → DU 15:56
PROVIDERS: Emergency Medicine; ADMIT Internal Medicine
DX: A41.9 Sepsis, unspecified organism (principal); I81 Portal vein thrombosis; J18.9 Pneumonia, unspecified organism; D69.6 Thrombocytopenia, unspecified; K51.90 Ulcerative colitis, unspecified, without complications; I10 Essential (primary) hypertension; E03.9 Hypothyroidism, unspecified; Z68.26 Body mass index [BMI] 26.0-26.9, adult
CPT/HCPCS: 82962; C9113; J1956; J2405; J2543; J2550; J3010; J3490; J7030; J7620; Q0092; Q9967

== ENCOUNTER 2018-12-06 09:13 | Emergency (ER) | payer OTHER, MEDICARE ==
[~2018-12-06] VITALS: Ht 152.4 cm; Wt 55.3 kg
[~2018-12-06 09:13] MED LIST changes: +ELIQUIS2.5 MG PO; +LEVAQUIN500 M1 PO
[2018-12-06 09:23] VITALS: Ht 152.4 cm; Wt 55.3 kg
[2018-12-06 10:13] LABS: CALCIUM 8.8 mg/dL (8.5-10.1); CARBON DIOXIDE 27.2 mmol/L (21-32); CHLORIDE SERUM 98 mmol/L (98-107); CREATININE SERUM 0.9 mg/dL (0.6-1.0); GLUCOSE SERUM 100 mg/dL (74-106); POTASSIUM SERUM 3.8 mmol/L (3.5-5.1); SODIUM SERUM 133 mmol/L (136-145)
[2018-12-06 10:19] LABS: BASOPHIL % 0.5 % (0-2); PLATELET COUNT 196 x10^3mcL (130-400); RED CELL DISTRIBUTION WIDTH 16.1 % (11.5-14.5)
[2018-12-06 10:20] LABS: ALBUMIN 2.7 g/dL (3.4-5.0); ALKALINE PHOSPHATASE 74 U/L (46-116); ALT/SGPT 20 U/L (14-59); AST/SGOT 26 U/L (15-37); BILIRUBIN TOTAL 0.6 mg/dL (0.20-1.00); TOTAL PROTEIN, SERUM 6.8 g/dL (6.4-8.2)
[2018-12-06 11:13] VITALS: BP 114/75
== END 2018-12-06 11:29 | disposition home or self-care (01) ==
LOC: ED 09:13
PROVIDERS: Emergency Medicine
DX: K51.90 Ulcerative colitis, unspecified, without complications (principal); K62.5 Hemorrhage of anus and rectum; I10 Essential (primary) hypertension; Z90.89 Acquired absence of other organs; Z90.710 Acquired absence of both cervix and uterus
CPT/HCPCS: 36415; 87046; 87046-59

== ENCOUNTER 2018-12-11 10:03 | Inpatient (IN) | payer OTHER, MEDICARE ==
[~2018-12-11] VITALS: Ht 149.9 cm; Wt 58.3 kg
[2018-12-11 10:26] VITALS: Ht 149.9 cm; Wt 58.3 kg
[2018-12-11 13:23] LABS: CALCIUM 7.9 mg/dL (8.5-10.1); CARBON DIOXIDE 26.8 mmol/L (21-32); CHLORIDE SERUM 93 mmol/L (98-107); CREATININE SERUM 0.9 mg/dL (0.6-1.0); GLUCOSE SERUM 115 mg/dL (74-106); POTASSIUM SERUM 3.1 mmol/L (3.5-5.1); SODIUM SERUM 131 mmol/L (136-145)
[2018-12-11 13:28] LABS: PLATELET COUNT 92 x10^3mcL (130-400); RED CELL DISTRIBUTION WIDTH 14.6 % (11.5-14.5)
[2018-12-11 13:30] LABS: ALKALINE PHOSPHATASE 86 U/L (46-116); ALT/SGPT 13 U/L (14-59); AST/SGOT 27 U/L (15-37); BILIRUBIN TOTAL 0.8 mg/dL (0.20-1.00); CHOLESTEROL 139 mg/dL (<200); HDL CHOLESTEROL 35 mg/dL (40-60); LIPASE 51 IU/L (73-393); TOTAL PROTEIN, SERUM 7.2 g/dL (6.4-8.2); TRIGLYCERIDES 77 mg/dL (<150)
[2018-12-11 13:37] LABS: ALBUMIN 2.5 g/dL (3.4-5.0)
[2018-12-11 13:44] LABS: T3 TOTAL 0.95 ng/mL
[2018-12-11 14:15] LABS: FREE T4 1.34 ng/dL (0.76-1.46); FREE THYROXINE INDEX 3.2 ug/dL (1.4-4.5); T4(THYROXINE) 9.3 ug/dL (4.7-13.3)
[2018-12-11 14:43] LABS: ATYPICAL LYMPH 5 %; BAND NEUTROPHIL 7 % (0-10); BASOPHIL 0 % (0-2); MONOCYTE 14 % (0-7); SEGMENTED NEUTROPHILS 65 % (37-75)
[2018-12-11 14:43] LABS: UA SPECIFIC GRAVITY >=1.030 (1.005-1.035); microscopic required? YES; urine erythrocyte 1+ (NEGATIVE)
[2018-12-11 14:44] LABS: PLATELET MORPHOLOGY PLATELETS DECREASED; rbc morphology (normal/abnorm) ABNORMAL (NORMAL)
[2018-12-11] MEDS ORDERED: FERROUS SULFAT325 M2 PO (17:01)
[2018-12-11 17:26] LABS: MAGNESIUM 1.3 mg/dL (1.8-2.4); PHOSPHOROUS 3.7 mg/dL (2.5-4.9)
[2018-12-11 18:34] VITALS: BP 133/79
[2018-12-11 21:02] VITALS: BP 114/67
[2018-12-12 05:38] VITALS: BP 115/79
[2018-12-12 05:58] LABS: BASOPHIL % 0.1 % (0-2)
[2018-12-12 06:36] LABS: CALCIUM 7.8 mg/dL (8.5-10.1); CARBON DIOXIDE 26.4 mmol/L (21-32); CHLORIDE SERUM 99 mmol/L (98-107); CREATININE SERUM 0.9 mg/dL (0.6-1.0); GLUCOSE SERUM 144 mg/dL (74-106); MAGNESIUM 1.9 mg/dL (1.8-2.4); SODIUM SERUM 134 mmol/L (136-145)
[2018-12-12 06:45] LABS: PLATELET COUNT 85 x10^3mcL (130-400)
[2018-12-12 08:15] VITALS: BP 111/66
[2018-12-12 09:00] VITALS: BP 111/66
[2018-12-12 11:58] VITALS: BP 118/72
[2018-12-12 16:25] VITALS: BP 107/61
[2018-12-12 20:45] VITALS: BP 117/76
[2018-12-13 05:55] VITALS: BP 125/59
[2018-12-13 06:45] LABS: PLATELET COUNT 154 x10^3mcL (130-400)
[2018-12-13 07:13] LABS: CALCIUM 7.5 mg/dL (8.5-10.1); CARBON DIOXIDE 26.7 mmol/L (21-32); CHLORIDE SERUM 102 mmol/L (98-107); CREATININE SERUM 0.9 mg/dL (0.6-1.0); GLUCOSE SERUM 132 mg/dL (74-106); MAGNESIUM 1.8 mg/dL (1.8-2.4); PHOSPHOROUS 2.8 mg/dL (2.5-4.9); POTASSIUM SERUM 3.1 mmol/L (3.5-5.1); SODIUM SERUM 137 mmol/L (136-145)
[2018-12-13 08:08] VITALS: BP 125/68
[2018-12-13 09:14] LABS: RED CELL DISTRIBUTION WIDTH 15.2 % (11.5-14.5)
[2018-12-13 11:33] VITALS: BP 124/67
[2018-12-13 11:57] LABS: BAND NEUTROPHIL 2 % (0-10); BASOPHIL 0 % (0-2); MONOCYTE 5 % (0-7); SEGMENTED NEUTROPHILS 86 % (37-75)
[2018-12-13 11:58] LABS: rbc morphology (normal/abnorm) NORMAL (NORMAL)
[2018-12-13 15:43] VITALS: BP 102/52
[2018-12-13 17:49] VITALS: BP 109/59
[2018-12-13 21:10] VITALS: BP 113/66
[2018-12-14 05:45] VITALS: BP 117/66
[2018-12-14 06:55] LABS: CALCIUM 7.3 mg/dL (8.5-10.1); CARBON DIOXIDE 27.3 mmol/L (21-32); CHLORIDE SERUM 104 mmol/L (98-107); CREATININE SERUM 0.8 mg/dL (0.6-1.0); GLUCOSE SERUM 173 mg/dL (74-106); MAGNESIUM 1.6 mg/dL (1.8-2.4); PHOSPHOROUS 2.1 mg/dL (2.5-4.9); POTASSIUM SERUM 3.2 mmol/L (3.5-5.1); SODIUM SERUM 140 mmol/L (136-145)
[2018-12-14 07:27] LABS: PLATELET COUNT 204 x10^3mcL (130-400); RED CELL DISTRIBUTION WIDTH 15.7 % (11.5-14.5)
[2018-12-14 09:00] VITALS: BP 127/78
[2018-12-14 12:25] VITALS: BP 112/71
[2018-12-14 12:58] LABS: BAND NEUTROPHIL 2 % (0-10); BASOPHIL 0 % (0-2); MONOCYTE 2 % (0-7); SEGMENTED NEUTROPHILS 89 % (37-75)
[2018-12-14 12:59] LABS: PLATELET MORPHOLOGY PLATELETS DECREASED; acanthocyte (spur cell) 3+; rbc morphology (normal/abnorm) ABNORMAL (NORMAL); schistocyte (helmet cell) 1+
[2018-12-14 16:20] VITALS: BP 107/63
[2018-12-14 20:59] VITALS: BP 132/81
[2018-12-15 05:55] VITALS: BP 138/75
[2018-12-15 09:10] VITALS: BP 140/78
[2018-12-15 12:10] VITALS: BP 120/71
[2018-12-15 16:45] VITALS: BP 145/79
[2018-12-15 18:16] VITALS: BP 145/779
[2018-12-15 20:32] VITALS: BP 126/72
[2018-12-16 05:53] VITALS: BP 130/70
[2018-12-16 09:34] VITALS: BP 123/68
[2018-12-16 12:38] VITALS: BP 135/78
[2018-12-16 16:28] VITALS: BP 126/69
[2018-12-16 20:47] VITALS: BP 126/67
[2018-12-17 05:04] VITALS: BP 99/51
[2018-12-17 06:44] LABS: CALCIUM 7.4 mg/dL (8.5-10.1); CARBON DIOXIDE 32.9 mmol/L (21-32); CHLORIDE SERUM 104 mmol/L (98-107); CREATININE SERUM 0.8 mg/dL (0.6-1.0); GLUCOSE SERUM 121 mg/dL (74-106); MAGNESIUM 1.3 mg/dL (1.8-2.4); PHOSPHOROUS 2.5 mg/dL (2.5-4.9); SODIUM SERUM 144 mmol/L (136-145)
[2018-12-17 06:48] LABS: POTASSIUM SERUM 2.7 mmol/L (3.5-5.1)
[2018-12-17 06:53] LABS: PLATELET COUNT 487 x10^3mcL (130-400); RED CELL DISTRIBUTION WIDTH 15.6 % (11.5-14.5)
[2018-12-17 09:34] VITALS: BP 111/62
[2018-12-17 10:55] LABS: BAND NEUTROPHIL 6 % (0-10); BASOPHIL 0 % (0-2); METAMYELOCTE 1 % (0-2); MONOCYTE 4 % (0-7); MYELOCYTE 1 % (0-2); SEGMENTED NEUTROPHILS 73 % (37-75)
[2018-12-17 10:57] LABS: burr cell (echinocyte) 1+; rbc morphology (normal/abnorm) ABNORMAL (NORMAL); schistocyte (helmet cell) 1+; tear drop cell (dacryocyte) 1+
[2018-12-17 13:39] VITALS: BP 123/93
[2018-12-17 13:41] VITALS: BP 123/93
== END 2018-12-17 16:40 | disposition home or self-care (01) | DRG 245 ==
LOC: ED 10:03 → DU 15:12
PROVIDERS: Family Medicine; Specialist; ADMIT Internal Medicine
DX: K51.90 Ulcerative colitis, unspecified, without complications (principal); N17.0 Acute kidney failure with tubular necrosis; E43 Unspecified severe protein-calorie malnutrition; J18.9 Pneumonia, unspecified organism; E11.65 Type 2 diabetes mellitus with hyperglycemia; E87.1 Hypo-osmolality and hyponatremia; I25.10 Atherosclerotic heart disease of native coronary artery without angina pectoris; E87.6 Hypokalemia; E03.9 Hypothyroidism, unspecified; I10 Essential (primary) hypertension; I25.2 Old myocardial infarction; Z95.5 Presence of coronary angioplasty implant and graft; Z90.710 Acquired absence of both cervix and uterus; Z90.49 Acquired absence of other specified parts of digestive tract; Z98.49 Cataract extraction status, unspecified eye; Z68.37 Body mass index [BMI] 37.0-37.9, adult
CPT/HCPCS: 82962; 83880; 84439; 86480; 94150; C9113; J1200; J1610; J1650; J1720; J1745; J2250; J2270; J2310; J2405; J2543; J2916; J2930; J3010; J3475; J3480; J3490; J7030; J7040; J7512; J7620; Q0092; Q0163